=== PATIENT | male | born 1975 | race Caucasian/White ===

== ENCOUNTER 2018-04-14 11:22 | Day surgery (SDC) | payer OTHER ==
[~2018-04-14] VITALS: Ht 180.3 cm; Wt 102.5 kg
[2018-04-14] VITALS (10 sets, daily range): BP systolic 118–149; BP diastolic 65–89
--- NOTE | 2018-04-14 06:57 | Pre-Procedure Note/Attestation ---
Pre-Procedure Note/Attestation Complete Prior to Procedure Planned Procedure: right Procedure Narrative: rt achilles tendon repair Indications for Procedure Pre-Operative Diagnosis: rt achilles tendon rupture Attestation I attest that I discussed the nature of the procedure; its benefits; risks and complications; and alternatives (and the risks and benefits of such alternatives ), prior to the procedure, with the patient (or the patient's legal customer account representative). I attest that, if there was a reasonable possibility of needing a blood transfusion, the patient (or the patient's legal customer account representative) was given the [facility] standardized written summary, pursuant to the [place] Blood Safety Act ([place] Health and Safety Code # 1645, as amended). I attest that I re-evaluated the patient just prior to the surgery and that there has been no change in the patient's H&P, except as documented below:none Butch Camacho MD Apr 14, 2018 06:57
[~2018-04-14 11:22] MED LIST: ceFAZolin sod 1 GM in NS 55 ML IVPB ONE; celeBREX 200mg Cap **SURGERY PATIENTS ONLY ORAL ONE; oxyCONTIN 20mg tab ORAL ONE
[2018-04-14] MEDS ORDERED: NORCO 5-325 TA1 EACH ORAL (12:13)
[2018-04-14] MEDS ORDERED: PERCOCET 5-3251 EACH ORAL (12:13)
[2018-04-14] MEDS ORDERED: oxyCONTIN 20mg tab ORAL ONE (12:57)
[2018-04-14] MEDS ORDERED: celeBREX 200mg Cap **SURGERY PATIENTS ONLY ORAL ONE (12:58)
[2018-04-14] MEDS ORDERED: Sterile Water For Irrig 2000ml IRRIG ONE (14:30)
[2018-04-14] MEDS ORDERED: NS Irrig 1000ml ONE (14:30)
[2018-04-14] MEDS ORDERED: Lidocaine 1% MPF 10mg/ml 5ml ONE (14:32)
[2018-04-14] MEDS ORDERED: fentaNYL 100 mcg/2 mL IV ONE (14:32)
[2018-04-14] MEDS ORDERED: Midazolam 2mg/2ml Inj ONE ×2 (14:32→14:40)
[2018-04-14] MEDS ORDERED: Propofol 200mg/20ml IV ONE (14:32)
[2018-04-14] MEDS ORDERED: Ropivacaine 5mg/ml Vial 30ml INJ ONE (14:34)
[2018-04-14] MEDS ORDERED: EPINEPHrine 1mg/1ml Amp ONE (14:36)
[2018-04-14] MEDS ORDERED: Bacitracin 50000 Units Vial ONE (14:37)
[2018-04-14] MEDS ORDERED: NeoSporin Gu Irrig 1ml Amp IRRIG ONE (14:37)
[2018-04-14] MEDS ORDERED: Bupivacaine 0.5% Inj 30 ml vial INJ ONE (14:37)
--- NOTE | 2018-04-14 15:11 | Anethesia Preoperative Eval ---
Anesthesia Pre-op PMH/ROS General Date of Evaluation: Apr 14, 2018 Anesthesiologist: Gerson ASA Score: ASA 2 Mallampati Score Class I : Soft palate, uvula, fauces, pillars visible Class II: Soft palate, uvula, fauces visible Class III: Soft palate, base of uvula visible Class IV: Only hard plate visible Mallampati Classification: Class II Surgeon: Janice Diagnosis: Right achilles tendon tear Surgical Procedure: Right achilles tendon repair Anesthesia History: none Family History: no anesthesia problems Allergies: Coded Allergies: No Known Allergies (Unverified , 04/14/18) Medications: see eMAR Past Medical History Cardiovascular: Denies: HTN, CAD, MT, valve dz, arrhythmia, other Pulmonary: Denies: asthma, COPD, TYRA, other Gastrointestinal/Genitourinary: Denies: GERD, CRI, ESRD, other Neurologic/Psychiatric: Reports: depression/anxiety; Denies: dementia, CVA, TIA, other Endocrine: Denies: DM, hypothyroidism, steroids, other HEENT: Denies: cataract (L), cataract (R), glaucoma, GULKANA (L), GULKANA (R), other Hematology/Immune: Denies: anemia, DVT, bleeding disorder, other Musculoskeletal/Integumentary: Denies: OA, RA, DJD, DDD, edema, other PSxH Narrative: Denies Anesthesia Pre-op Phys. Exam Physician Exam Last Vital Signs Date Time Temp Pulse Resp B/P (MAP) Pulse Ox O2 Delivery O2 Flow Rate FiO2 04/14/18 12:10 97.8 55 20 128/78 (95) 99 97.8 04/14/18 12:08 Room Air Constitutional: NAD Cardiovascular: RRR Respiratory: CTA Airway Exam Mallampati Score: Class II MO: full ROM: full Teeth: intact Anesthesia Pre-op A/P Labs see chart Studies Pre-op Studies: EKG - sr Risk Assessment & Plan Assessment: ASA II Plan: GA, popliteal nerve block Status Change Before Surgery: No Pre-Antibiotics Drug: Ancef 2g Given Within 1 Hr of Incision: Yes Time Given: 15:05 Inna Chand MD Apr 14, 2018 15:11
[2018-04-14] MEDS ORDERED: Tylenol #3 tab (300mg/30mg) ORAL PRN (15:15)
[2018-04-14] MEDS ORDERED: HYDROmorphone 1mg/ml Carpuject SUBQ PRN (15:15)
[2018-04-14] MEDS ORDERED: D5 1/2NS 1,000 ML IV SCH (15:15)
[2018-04-14] MEDS ORDERED: Norco 5mg/325mg tab ORAL PRN (15:15)
[2018-04-14] MEDS ORDERED: fentaNYL 100 mcg/2 mL IV PRN (15:30)
[2018-04-14] MEDS ORDERED: LR 1000ml 1,000 ML IVLG SCH (15:30)
[2018-04-14] MEDS ORDERED: Metoclopramide 10mg/2ml Inj IVP PRN ×2 (15:30→16:15)
[2018-04-14] MEDS ORDERED: Ketorolac 30mg Inj IV PRN (15:30)
[2018-04-14] MEDS ORDERED: Labetalol 5mg/ml 20ml vial IV PRN (15:30)
[2018-04-14] MEDS ORDERED: LORazepam Inj 2mg/ml 1ml IV PRN (15:30)
[2018-04-14] MEDS ORDERED: Hydromorphone 0.5mg/0.5ml inj IVP PRN (15:30)
[2018-04-14] MEDS ORDERED: Midazolam 2mg/2ml Inj IVP PRN (15:30)
[2018-04-14] MEDS ORDERED: DiphenhydrAMINE 50mg/ml Inj IVP PRN (15:30)
--- NOTE | 2018-04-14 16:29 | Brief Operative Note ---
Immediate Post Operative Note Operative Note Chief Complaint: rt achilles tendon rupture Pre-op Diagnosis: rt achilles tendon rupture Procedure: rt achilles tendon repair Post-op Diagnosis: same as pre-op Findings: consistent w/pre-op dx studies Surgeon: md zita Rn Social Services: freddy guerrero Anesthesiologist: md sue Anesthesia: general, regional Specimen: none Complications: none Condition: stable Fluids: ns Estimated Blood Loss: minimal Drains: none Implant(s) used?: No Vianca Guerrero Apr 14, 2018 16:29
--- NOTE | 2018-04-14 16:41 | Immediate Post-Op Evaluation ---
Immediate Post-Op Evalulation Immediate Post-Op Evalulation Procedure: Right achilles tenodn repair Date of Evaluation: Apr 14, 2018 Time of Evaluation: 16:42 IV Fluids: 900 Blood Products: 0 Estimated Blood Loss: min Urinary Output: 0 Blood Pressure Systolic: 126 Blood Pressure Diastolic: 69 Pulse Rate: 63 Respiratory Rate: 16 O2 Sat by Pulse Oximetry: 100 Temperature (Fahrenheit): 97.1 Pain Score (1-10): 0 Nausea: No Vomiting: No Complications 0 Patient Status: awake, reacts, patent, none Hydration Status: adequate Drug: Ancef 2g Given Within 1 Hr of Incision: Yes - 1500 Time Given: 15:00 Inna Chand MD Apr 14, 2018 16:41
--- NOTE | 2018-04-14 16:42 | 48 Hour Post Anesthesia Eval ---
Post Anesthesia Evaluation Procedure: Right achilles tenodn repair Date of Evaluation: Apr 14, 2018 Airway: patent Nausea: No Vomiting: No Pain Intensity: 0 Hydration Status: adequate Cardiopulmonary Status: at baseline Mental Status/LOC: patient returned to baseline Post-Anesthesia Complications: 0 Follow-up care needed: ready to discharge Inna Chand MD Apr 14, 2018 16:42
--- NOTE | 2018-04-15 01:00 | Operative Note - Dictated ---
DATE OF OPERATION: 04/14/2018 PREOPERATIVE DIAGNOSIS: Right complete Achilles tendon rupture. POSTOPERATIVE DIAGNOSIS: Right complete Achilles tendon rupture. PROCEDURE: Right Achilles tendon repair using four #2 FiberWire sutures with two sutures in the proximal portion and two sutures in the distal portion using modified Krackow stitches, augmented with 2-0 circumferential paratenon locking stitches. SURGEON: Butch Camacho M.D. PRODUCT CRAFTSMAN: Vianca Maria PA-C. ANESTHESIOLOGIST: Dr. Nieto. ANESTHESIA: General LMA anesthesia combined with popliteal block. ESTIMATED BLOOD LOSS: Less than 20 mL. COMPLICATIONS: None. BRIEF HISTORY: The patient is a pleasant 42-year-old gentleman who sustained a traumatic Achilles tendon rupture on the right side. MRI confirmed this. After full discussion of risks and benefits of the surgery and complications associated with it including infection, bleeding, neurovascular complications, possibility of wound dehiscence, possibility of continued pain, and possibility of pain and weakness with push-off, and other complications that may arise down the line as well as dehiscence of the wound requiring further surgery, flaps, and other issues, he opted for surgical treatment as described above. OPERATIVE PROCEDURE: The patient was brought to the operative table and was placed supine. All pressure points were well-padded. General LMA anesthesia was induced. Popliteal block was performed. The right leg was prepped and draped in usual sterile fashion. The patient was initially placed prone and was well-padded. The right leg was then prepped and draped in usual sterile fashion and the right leg was exsanguinated and tourniquet was inflated to 275 mmHg. Standard incision was made over the Achilles tendon. The incision was taken through the subcutaneous tissue and paratenon was opened. The tendon was completely torn 2 cm distal to myotendinous junction. At this point, the edges were debrided. The hematoma was removed and the wounds were washed and irrigated. At this point, using #2 FiberWire suture, two sutures were placed on the proximal portion using modified Krackow sutures; two were placed distally in the same manner. At this point, the limbs of the suture were brought together and while plantar flexing the ankle, the Achilles was approximated and the sutures were tied. This provided excellent stability and the foot could be brought up to zero dorsiflex without much tension on the repaired site. At this point, a 2-0 Prolene was then used to do epitenon stitches circumferentially around the tendon using a locking stitches to provide as a stability. Once this was completed, the wounds were thoroughly irrigated. The paratenon was closed using 2-0 Prolene sutures. The subcutaneous tissue was closed using 2-0 Vicryl suture and the skin was closed using 3-0 nylon interrupted sutures. Sterile dressing was applied and the patient was placed in a posterior splint in sugar-tong splint. All lap counts and instrument counts were correct. Butch Camacho M.D. DR: Conor JOB#: [id number] CC:
== END 2018-04-14 18:05 | disposition home or self-care (01) ==
LOC: SUR 11:22
DX: S86.011A Strain of right Achilles tendon, initial encounter (principal); F32.9 Major depressive disorder, single episode, unspecified; F41.9 Anxiety disorder, unspecified
CPT/HCPCS: 27650; J0690; J1885; J2250; J2405; J2704; J2795; J3010; 94003; 94150